=== PATIENT | female | born 1950 | race Caucasian/White ===

== ENCOUNTER 2019-04-17 15:25 | Emergency (ER) | payer MEDICARE, BC ==
[~2019-04-17] VITALS: Ht 149.9 cm; Wt 50.5 kg
[2019-04-17 15:27] VITALS: Ht 149.9 cm; Wt 50.5 kg
[2019-04-17] MEDS ORDERED: DEXAMETHASONE 10 MG/ML 1 ML INJ IM ONE (16:30)
[2019-04-17] MEDS ORDERED: NAPR-985 PO (17:44)
[2019-04-17] MEDS ORDERED: MED4DP PO (17:44)
[2019-04-17 17:58] VITALS: BP 138/75; PULSE 76; RESP 16
--- NOTE | 2019-04-17 19:05 | ERD ---
ER Documentation Chief Complaint Chief Complaint LEFT SIDED NECK PAIN WITH RADIAITING PAIN TO THE HAND X 1 DAY HPI 69-year-old female history of hypertension brought in by family with complaints of progressively worsening atraumatic left-sided neck pain ongoing for the past several months. She states pain worsened yesterday with numbness and tingling down her left arm. She was seen at an urgent care who subsequently referred her here for further evaluation. Denies any slurred speech, photophobia, phonophobia or changes in mental status. No associated headache. No trauma. No other complaints. Patient has been taking [id number] Aleve with minimal improvement of her symptoms. ROS All systems reviewed and are negative except as per history of present illness. Medications Home Meds Active Scripts Methylprednisolone* (Medrol* DOSE PACK) 4 Mg/Dose-Pack Tab.ds.pk, 4 MG PO . DIRECTED, #1 PACKET Prov:JOSE CODY PA-C 04/17/19 Naproxen* (Naprosyn*) 500 Mg Tablet, 500 MG PO BID PRN for PAIN AND/OR INFLAMMATION, #30 TAB Prov:CARLOSIGRIKIJOSE MEDINA N PA-C 04/17/19 Allergies Allergies: Coded Allergies: No Known Allergy (Verified , 04/17/19) PMhx/Soc Medical and Surgical Hx: pt denies Medical Hx, pt denies Surgical Hx Hx Alcohol Use: No Hx Substance Use: No Hx Tobacco Use: No Smoking Status: Never smoker Physical Exam Vitals Vital Signs Date Temp Pulse Resp B/P (MAP) Pulse Ox O2 O2 Flow FiO2 Time Delivery Rate 04/17/19 76 16 138/75 99 Room Air 17:58 (96) 04/17/19 97.1 74 16 140/77 99 15:27 (98) Physical Exam Const: + Mild distress of any pain. Head: Atraumatic Eyes: Normal Conjunctiva ENT: Normal External Ears, Nose and Mouth. Neck: Full range of motion. No meningismus. + Mild midline tenderness palpation. Resp: Clear to auscultation bilaterally Cardio: Regular rate and rhythm, no murmurs Back: No midline or flank tenderness Ext: Upper Extremity -left Skin: No laceration, or evidence of external trauma Compartments: Soft Motor: Full active range of motion shoulder/elbow/wrist/hand Sensation: + 4/5 strength. Radian, medial, ulnar nerves intact. Bones: Nontender humerus/elbow/forearm/wrist/hand Joints: No effusion Pulses/Perfusion: 2+ radial, Capillary refill < 2 seconds Neuro: M/S: Alert and oriented Face: EOMI, face and pharynx with normal sensation and function Motor: Normal strength throughout Sensation: Normal sensation throughout Speech: Normal Cerebel: Normal coordination Normal gai Psych: Normal Mood and Affect Results 24 hrs Current Medications Medications Dose Sig/Gabrielle Start Time Status Last (Trade) Ordered Route PRN Stop Time Admin Dose Reason Admin 10 mg ONCE ONCE 04/17/19 DC 04/17/19 Dexamethasone IM 16:30 04/17/19 16:31 (Decadron) 16:31 Procedures/MDM LABS & DIAGNOSTIC IMAGING: PROCEDURE: CT Brain without contrast. CLINICAL INDICATION: Headache COMPARISON: Head CT March 26, 2014 FINDINGS: There is no intracranial hemorrhage, mass effect, or midline shift. No extra- axial fluid collection is seen. Again noted is a densely calcified extra-axial mass extending off the inner table of the right parietal skull measuring 17 by 14 mm. There is no associated edema or mass effect. This is compatible with a meningioma. The ventricles and sulci are normal in size and configuration. The density of the brain is normal, and the hernandez white matter differentiation appears well-preserved. The visualized paranasal sinuses and osseous structures are grossly unremarkable. IMPRESSION: 1. No intracranial hemorrhage or evidence of acute transcortical infarct. PROCEDURE: CT Cervical Spine. CLINICAL INDICATION: 69-year-old female. Neck pain extending into left arm. FINDINGS: Intact odontoid and the occipital condyles. The C1 and C2 lateral masses align. No acute fracture. No jumped or perched facets. Normal precervical soft tissues. No heaven cord compression. C2-3: Disc space height maintained. No significant canal stenosis or foraminal narrowing. C3-4: Disc space height maintained. Mild canal stenosis. Asymmetric right foraminal narrowing due to uncinate process spurring. C4-5: Narrowed disc space. Right sided posterior spur/disc complex with narrowing of the anterior subarachnoid space. Mild to moderate canal stenosis. Bilateral foraminal narrowing due to uncinate process spurring. C5-6: Narrowed disc space. Diffuse posterior spur/disc complex, largest in the right subarticular region. Mild to moderate canal stenosis with cord encroachment. Bilateral foraminal narrowing, right greater than left. C6-7: Disc space height maintained. Right sided spur/disc complex extending into the right neural foramen. There is encroachment upon the ventral right hemicord and exiting right C7 root. Smaller left subarticular spur/disc complex. C7-T1: Disc space height maintained. No canal stenosis or foraminal narrowing. Multinodular thyroid gland. IMPRESSION: 1. No acute cervical spine fracture. 2. C5-6 spondylosis with diffuse posterior spur/disc complex resulting in mild to moderate canal stenosis with cord encroachment. Bilateral foraminal narrowing, greater on the right, with encroachment on the exiting right C6 root. 3. C6-7 spondylosis with large right sided spur/disc complex extending in the r ight neural foramen encroaching upon the ventral right hemicord and exiting right C7 root. 4. Left C5-6 and C6-7 foraminal narrowing with potential nerve root encroachment. Consider MR cervical spine to evaluate for soft disc herniations with potential for left-sided nerve root encroachment. PROCEDURES: 12-lead EKG interpretation as interpeted by Dr. Haile Normal Sinus Rhythm with ventricular rate of 66 beats per minute Normal axis Normal intervals No acute ST or T wave changes suggestive of acute ischemia or STEMI. ED COURSE: The patient was given IM decadron The medication was well tolerated and the patient had market improvement in symptoms. The patient remained stable throughout ED course. MEDICAL DECISION MAKIN-year-old female presents with left-sided neck pain radiating down her left arm. She was sent here from urgent care for further evaluation and imaging. EKG was unremarkable. CT head is normal, no evidence of CVA. CT neck shows spinal stenosis, likely the cause of her cervical radiculopathy. Her symptoms improved status post Decadron here. Will DC home with a trial of steroids along with anti-inflammatories. I offered stronger pain medications but the patient deferred. I recommended she follow-up with her primary care provider for referral to orthopedics for further evaluation and treatment of her pain. Strict return precautions were discussed. PRESCRIPTIONS: Medrol Dosepak, naproxen SPECIALIST FOLLOW UP RECOMMENDED: Ortho Patient has been advised to follow up with primary care in 1-2 days. Departure Diagnosis: Primary Impression: Cervical radicular pain Condition: Stable Patient Instructions: Radiculopathy, Cervical Referrals: [facility] 7 a.m.- 11 p.m. Every Day of the Week NO APPOINTMENT OR AUTHORIZATION NEEDED Additional Instructions: You must follow-up with an orthopedist for further evaluation of your pain. He can take the medication prescribing you for the next few days. Return here for any new or worsening symptoms. JOSE CODY PA-C Apr 17, 2019 19:05
== END 2019-04-17 17:59 | disposition home or self-care (01) ==
LOC: FTE 15:25
DX: M54.12 Radiculopathy, cervical region (principal); I10 Essential (primary) hypertension
CPT/HCPCS: 70450; 72125; 93005; 96372; 99285; J1100